=== PATIENT | male | born 1980 ===

== ENCOUNTER 2017-04-22 10:00 | Emergency (ER) | payer OTHER, BC ==
[2017-04-22 10:02] VITALS: BP 127/81; PULSE 78; TEMP 97; O2SAT 98
[2017-04-22 10:03] VITALS: BMI 29.7
--- NOTE | 2017-04-22 10:15 | ED PDOC ---
HPI: General Adult Time Seen by Provider: 04/22/17 10:15 Chief Complaint (Nursing): Abnormal Skin Integrity Chief Complaint (Provider): leg injury History Per: Patient Additional Complaint(s): 37-year-old male with no past medical history presents with laceration to left leg sustained when he was at work and accidentally brushed his leg against a saw. Patient applied pressure dressing and came to ED. He denies numbness or tingling to the affected area but does have mild pain. Patient not sure of last tetanus. He is able to fully bear weight on left leg without limitation. Past Medical History Reviewed: Historical Data, Nursing Documentation, Vital Signs Vital Signs: Last Vital Signs Temp 97 F L 04/22/17 10:02 Pulse 78 04/22/17 10:02 Resp BP 127/81 04/22/17 10:02 Pulse Ox 98 04/22/17 10:37 - Medical History PMH: No Chronic Diseases - Surgical History Surgical History: No Surg Hx - Family History Family History: States: No Known Family Hx - Living Arrangements Living Arrangements: With Family - Social History Current smoker - smoking cessation education provided: No Alcohol: None Drugs: Denies - Immunization History Hx Tetanus Toxoid Vaccination: No (not sure of last tetanus) - Home Medications Home Medications: Ambulatory Orders Medication Instructions Recorded Cephalexin [Keflex] 500 mg PO TID #21 capsule 04/22/17 Ibuprofen [Motrin Tab] 800 mg PO Q8 PRN #20 tab 04/22/17 - Allergies Allergies/Adverse Reactions: Allergies Allergy/AdvReac Type Severity Reaction Status Date / Time No Known Allergies Allergy Verified 04/22/17 10:06 Review of Systems ROS Statement: Except As Marked, All Systems Reviewed And Found Negative Musculoskeletal: Positive for: Other (left leg laceration) Physical Exam - Reviewed Nursing Documentation Reviewed: Yes Vital Signs Reviewed: Yes - Physical Exam Appears: Positive for: Well, Non-toxic, No Acute Distress Skin: Negative for: Rash Extremity: Positive for: Other (3 cm long by 0.5 cm wide laceration noted to left upper calf, no active bleeding, no foreign body, full range of motion left knee, normal distal sensation) Neurologic/Psych: Positive for: Alert, Oriented, Gait (steady) - ECG O2 Sat by Pulse Oximetry: 98 Pulse Ox Interpretation: Normal Medical Decision Making Medical Decision Makin37 year old with left leg laceration. Plan: Tetanus booster Laceration repair Procedure note: Under sterile conditions laceration was anesthetized with 10 cc of 1% lidocaine with epinephrine, good anesthesia was achieved, wound was copiously irrigated with normal saline and Betadine, wound was explored for foreign bodies, none seen. Using 4-0 nylon, a running suture was used to repair wound, good wound approximation was achieved, good bleeding control was achieved. Bacitracin and bandage applied to sutured wound. Patient tolerated well by patient with no complications. Initial dose Keflex given in the ED along with prescription for Keflex and Motrin. Advised wound check in 2 days and suture removal 14 days. Disposition - Clinical Impression Clinical Impression: Leg laceration, Requires a booster tetanus - Patient ED Disposition Is Patient to be Admitted: No Counseled Patient/Family Regarding: Diagnosis, Need For Followup, Rx Given - Disposition Referrals: [facility] [Outside] Disposition Time: 11:15 Condition: STABLE Additional Instructions: Keep wound clean and dry. Take prescription meds as directed. Wound check 2-3 days, suture removal 14 days. Prescriptions: Cephalexin [Keflex] 500 mg PO TID #21 capsule Ibuprofen [Motrin Tab] 800 mg PO Q8 PRN #20 tab PRN Reason: Pain, Moderate (4-7) Instructions: Care For Your Stitches (ED), Laceration (ED), Diphtheria/ Acellular Pertussis/Tetanus Vaccine (DTaP) (By injection) Forms: [facility] ED School/Work Excuse
[2017-04-22] MEDS ORDERED: Lidocaine 2% w Epi 1:100,000 Inj IJ STA (10:38)
[2017-04-22] MEDS ORDERED: TDAP Vaccine 0.5 mL Syr IM ONE (10:38)
== END 2017-04-22 12:13 | disposition home or self-care (01) ==
LOC: H.ER 10:00
DX: S81.812A Laceration without foreign body, left lower leg, initial encounter (principal); W26.8XXA Contact with other sharp object(s), not elsewhere classified, initial encounter; Y99.0 Civilian activity done for income or pay